=== PATIENT | male | born 1985 | race Caucasian/White ===

== ENCOUNTER 2018-07-21 02:38 | Inpatient (IN) | payer OTHER ==
[~2018-07-21] VITALS: Ht 153.7 cm; Wt 123.8 kg
[2018-07-21 04:00] VITALS: BP 138/90
--- NOTE | 2018-07-21 04:00 | NUR ---
RN ADMITTING NOTES PT CAME VIA GURNEY, AWAKE AND ALERT X4. PT IN ROOM AIR, NO SIGNS OF LABORED BREATHING. COMPLAINS OF PAIN IN THE RIGHT ABDOMEN GENERAL AREA 10/10. PT AMBULATED TO BED WITH STEADY GAIT. SKIN IS INTACT. IV ACCESS ON THE LEFT AC 20G PATENT AND INTACT. VITAL SIGNS BP: 138/90, 20 RESPIRATIONS, 115 HEART RATE, 02 STAT 97% ON ROOM AIR, TEMP OF 98 DEGREES. PT REPORTS NO NAUSEA OR VOMITING, "JUST IN PAIN." WILL CONTINUE TO MONITOR AND CONTACT DR. JACOB FOR ADMITTING ORDERS. SAFETY MEASURES IN PLACED, CALL LIGHT WITHIN REACH.
--- NOTE | 2018-07-21 04:21 | NUR ---
RN NOTES/ MD CALL CALLED DR. JACOB FOR ADMITTING ORDERS. SPOKE WITH HIM AND HE SAID "I WILL PUT IN THE ORDERS."
[2018-07-21] MEDS ORDERED: Z GUARD REMEDY 2 OZ OINT TP PRN (04:30)
[2018-07-21] MEDS ORDERED: ONDANSETRON HCL/PF 4 MG/2 ML VIAL IVP PRN (04:30)
[2018-07-21] MEDS ORDERED: Folic acid 1 MG in IV D5W 50 ML IV SCH (04:30)
[2018-07-21] MEDS ORDERED: Thiamine 100 MG in IV D5W 50 ML IV SCH (04:30)
[2018-07-21] MEDS ORDERED: ACETAMINOPHEN 325 MG TABLET PO PRN (04:30)
[2018-07-21] MEDS ORDERED: ZOLPIDEM TARTRATE 5 MG TABLET PO PRN (04:30)
--- NOTE | 2018-07-21 05:13 | NUR ---
RN NOTES/ MD CALL CALLED [facility] TO SPEAK WITH DR. JACOB TO ASK ABOUT THIAMINE AND PAIN MEDICATION ORDER. PT REPORTS 10/10 PAIN BUT NO OTHER PAIN MED BESIDES TYLENOL IS ORDERED. PT RECEIVED 1 BANANA BAG AT [place], WANT TO CONFIRM IF DR. JACOB STILL WANTS THIAMINE TO BE ADMINISTERED. [facility] TRIED PAGING DR. JACOB BUT "HE DID NOT DENTAL AIDE." WILL TRY TO CALL AGAIN.
[2018-07-21] MEDS: IV 1/2NS 1000 ML 1,000 ML IV PRN ×2 (05:28→23:28)
[2018-07-21] MEDS ORDERED: HYDROMORPHONE INJ 0.5 MG/0.5 ML SYRINGE IV PRN (06:00)
--- NOTE | 2018-07-21 06:00 | NUR ---
RN NOTES/ FOLIC AND THIAMINE CHARGE NURSE GREY CALLED NURSING CONTOUR BAND SAW OPERATOR VERTICAL ABOUT FOLIC ACID AND THIAMINE, NURSING CONTOUR BAND SAW OPERATOR VERTICAL SAID THAT IT WILL COME FROM THE PHARMACY. UNABLE TO ADMINISTER FOLIC ACID AND THIAMINE DUE TO UNAVAILABLE. WILL WAIT FOR PHARMACY AND WILL ENDORSE TO THE ONCOMING NURSE
--- NOTE | 2018-07-21 06:01 | NUR ---
RN NOTES/ DILAUDID ORDER SPOKE TO DR. JACOB ABOUT PAIN MEDICATION, HE ORDERED DILAUDID. PT REACTION TO MORPHINE IS HOT FLASH, SPOKE TO PHARMACIST JADE, SHE SAID THAT "HOT FLASHES IS NOT REALLY AN ALLERGIC REACTION. GIVE TRIAL OF DILAUDID ONCE TRIAL." WILL CONTINUE TO MONITOR CLOSELY FOR ANY REACTION. CHARGE NURSE AWARE
[2018-07-21 06:20] LABS: ALBUMIN 3.1 g/dL (3.4-5.0); BILIRUBIN,TOTAL 1.1 mg/dL (0.2-1.0); CALCIUM, SERUM 8.6 mg/dL (8.5-10.1); CREATININE 0.9 mg/dL (0.6-1.3); MAGNESIUM 1.5 mg/dL (1.8-2.4); PHOSPHORUS 3.6 mg/dL (2.5-4.9); POTASSIUM 3.4 mmol/L (3.5-5.1); TOTAL PROTEIN, SERUM 7.3 g/dL (6.4-8.2)
[2018-07-21 06:25] LABS: THYROID STIMULATING HORMONE 0.897 uIU/mL (0.358-3.74)
[2018-07-21 06:29] LABS: BASOPHILS % (AUTO) 0.2 % (0.0-2.0); HEMATOCRIT 44 % (39-51); HEMOGLOBIN 14.7 g/dL (13.5-17.5); LYMPHOCYTES # (AUTO) 1.4 /CMM (0.8-4.8); LYMPHOCYTES % (AUTO) 9.7 % (20.0-44.0); MEAN CORPUSCULAR HGB CONC 33 g/dl (31.0-36.0); MEAN CORPUSCULAR VOLUME 92 fL (80-96); MONOCYTES # (AUTO) 1.2 /CMM (0.1-1.30); MONOCYTES % (AUTO) 8.4 % (2.0-12.0); NEUTROPHILS # (AUTO) 11.5 /CMM (1.8-8.9); NEUTROPHILS % (AUTO) 80.7 % (43.0-81.0); PLATELET COUNT (AUTO) 216 /CMM (150-450); RDW COEFFICIENT OF VARIATION 15.8 (11.5-15.0); RED BLOOD CELL COUNT(AUTO) 4.82 MIL/uL (4.5-6.0); WHITE BLOOD COUNT (AUTO) 14.3 K/uL (4.3-11.0)
[2018-07-21] MEDS: HYDROMORPHONE 1 MG/1 ML DISP.SYRIN IV PRN ×4 (06:42→19:55)
--- NOTE | 2018-07-21 06:55 | NUR ---
RN NOTES/ DILAUDID ADMINISTERED ADMINISTERED DILAUDID TO PATIENT. PT DENIES ANY ALLERGIC REACTION AT THIS MOMENT, NO FEELING OF HOT FLASH, NO ITCHINESS, NO SHORTNESS OF BREATH. WILL CLOSELY MONITOR THE PATIENT.
--- NOTE | 2018-07-21 06:57 | NUR ---
RN CLOSING NOTES PT LAYING IN BED, AWAKE AND ALERT. PT IN ROOM AIR, TOLERATING WELL, NO LABORED BREATHING, NO SHORTNESS OF BREATH. IV ACCESS ON THE LEFT AC 20G PATENT AND INTACT. PT COMPLAINS OF PAIN LEVEL 10, GIVEN DILAUDID, NO SIGNS OF ALLERGIC REACTION. SKIN IS INTACT. SAFETY MEASURES IN PLACED, CALL LIGHT WITHIN REACH. WILL ENDORSE CONTINUITY OF CARE TO THE ONCOMING NURSE. WILL LET ONCOMING NURSE TO MONITOR CLOSELY FOR ANY ALLERGIC REACTION
--- NOTE | 2018-07-21 07:15 | NUR ---
MS RN OPENING NOTE RECEIVED PATIENT IN BED. ALERT ORIENTED X4, ON 2L O2 VIA NC, TOLERATING WELL. RESPIRATIONS EVEN AND UNLABORED, REPORTS DISCOMFORT AND PAIN 6/10 ON THE RIGHT UPPER ABDOMEN, PAIN MANAGEMENT IMPLEMENTED BY PM NURSE. DENIES N/V AT THIS TIME. PATIENT IS ABLE TO COMMUNICATE NEEDS. PATIENT WITH L AC 20G IVC, WITH FLUIDS RUNNING AT 150ML/HR. PATIENT KEPT CLEAN AND COMFORTABLE. ALL NEEDS ATTENDED. SAFETY MEASURES IN PLACE, BED IN LOW LOCKED POSITION, SIDE RAILS UP X2, CALL LIGHT WITHIN EASY REACH. WILL CONTINUE TO MONITOR.
[2018-07-21 08:00] VITALS: BP 116/60
[2018-07-21 08:16] VITALS: BP 116/60
[2018-07-21] MEDS: PANTOPRAZOLE 40 MG VIAL IV SCH (08:37)
[2018-07-21] MEDS: Thiamine 100 MG in IV D5W 50 ML IV SCH (08:37)
[2018-07-21] MEDS: Folic acid 1 MG in IV D5W 50 ML IV SCH (09:28)
[2018-07-21] MEDS: POTASSIUM CL. PREMIX PERIPHER. 50 ML IV SCH ×2 (10:52→12:15)
[2018-07-21] MEDS: Magnesium 1GM/D5W 100ML PREMIX 100 ML IV SCH ×2 (13:25→14:31)
[2018-07-21 16:19] VITALS: BP 114/70
--- NOTE | 2018-07-21 17:30 | NUR ---
PATIENT STATES HE WANTS TO GO AGAINST MEDICAL ADVICE AND HYDRATE AT HOME INSTEAD WITH ORAL FLUIDS. ALL RISKS AND BENEFITS AND POSSIBLE OUTCOMES DISCUSSED WITH THE PATIENT. PATIENT DECIDED TO STAY AND CONTINUE WITH CURRENT TREATMENT PLAN AT THIS TIME. WILL CONTINUE TO MONITOR.
[2018-07-21] MEDS: LORAZEPAM INJ 2 MG/ML VIAL IV PRN ×2 (17:51→21:51)
--- NOTE | 2018-07-21 17:55 | NUR ---
PATIENT IS FEELING ANXIOUS AND SHAKY POSSIBLY DUE TO ALCOHOL WITHDRAWAL. NO TREMORS OBSERVED. NO SEIZURE ACTIVITY NOTED. PATIENT IS ALERT ORIENTEDX4. PRN ATIVAN 2MG IV ADMINISTERED PER PHYSICIAN ORDER. PATIENT WAS PLACED ON [employer] INVENTORY CLERK PER ORDER OF OBI PRINCE NP. WILL CARRY OUT AND CONTINUE TO MONITOR AT THIS TIME.
--- NOTE | 2018-07-21 18:42 | NUR ---
SPECIMEN PREPARATION ASSISTANT CLOSING NOTE PATIENT IN BED. ALERT ORIENTED X4, ON ROOM AIR, TOLERATING WELL. RESPIRATIONS EVEN AND UNLABORED. IN NO APPARENT DISTRESS OR DISCOMFORT AT THIS TIME. DENIES PAIN AND N/V AT THIS TIME. PATIENT IS ABLE TO COMMUNICATE NEEDS. INSTRUCTED ON SIGNS AND SYMPTOMS OF ALCOHOL WITHDRAWAL. PATIENT WITH L AC 20G IVC, WITH FLUIDS RUNNING AT 150ML/HR. ON TELE MONITORING WITH SINUS RHYTHM AHD HR OF 91. ALL DUE MEDICATIONS ADMINISTERED. PRN ATIVAN WAS GIVEN FOR WITHDRAWAL SYMPTOMS. PAIN MANAGED WITH PRN DILAUDID. PATIENT KEPT NPO THROUGHOUT THE DAY. ALL NEEDS ATTENDED. PATIENT KEPT CLEAN AND COMFORTABLE. SAFETY MEASURES IN PLACE, SEIZURE PRECAUTIONS OBSERVED. BED IN LOW LOCKED POSITION, SIDE RAILS UP X2, CALL LIGHT WITHIN EASY REACH. WILL ENDORSE TO PM NURSE FOR GRABIEL.
--- NOTE | 2018-07-21 19:24 | NUR ---
RN OPENING NOTES PT ASLEEP IN BED, COMFORTABLY. PT IN ROOM AIR, NO SIGNS OF LABORED BREATHING, NO SIGNS OF DISTRESS. CARDIAC MONITORING IN PLACED, SHOWING SINUS RHYTHM 86BPM. SKIN IS INTACT. IV ACCESS ON THE LEFT AC 20G PATENT AND INTACT, 1/2 NS RUNNING AT 150 MLS/HR. NO SIGNS OF PAIN AT THIS MOMENT. SAFETY MEASURES IN PLACED, CALL LIGHT WITHIN REACH. WILL CONTINUE TO MONITOR AND ASSESS PATIENT
[2018-07-21 20:00] VITALS: BP 104/61
[2018-07-22 00:03] VITALS: BP 128/86
[2018-07-22] MEDS: HYDROMORPHONE 1 MG/1 ML DISP.SYRIN IV PRN ×2 (02:33→08:11)
[2018-07-22] MEDS: LORAZEPAM INJ 2 MG/ML VIAL IV PRN ×2 (03:20→09:37)
--- NOTE | 2018-07-22 03:20 | NUR ---
RN NOTES/ ATIVAN ATIVAN GIVEN BECAUSE PT WAS SLIGHTLY SHAKING, ANXIOUS, AND SWEATING. MADE THE ROOM COOLER TO HELP WITH SWEATING
[2018-07-22 04:00] VITALS: BP 119/82
--- NOTE | 2018-07-22 05:47 | NUR ---
RN NOTES PT VERBALIZES PLANNING ON LEAVING AMA IF NOT SEEN BY ANY DOCTOR TODAY AND HOW HE HAS BEEN NPO FOR 2 DAYS BUT NO PROCEDURE IS BEING DONE, EXCEPT FOR BLOOD DRAW. I TOLD HIM THAT THE ONCOLOGY DOCTOR IS LOOKING AT THE CALCIFICATION IN HIS AORTA SO THEY CAN TREAT IT IF POSSIBLE. I TOLD HIM THAT I WILL ENDORSE HIS CONCERN TO THE ONCOMING NURSE AND MD GROUP IF SEEN BEFORE END OF SHIFT, IF NOT THEN HE CAN SIGN AMA IF HE STILL WANTS TO.
--- NOTE | 2018-07-22 06:18 | NUR ---
RN NOTES SPOKE WITH DR. JACOB ON THE PHONE ABOUT PT'S CONCERN, HE SAID TO KEEP THE PT IN NPO BECAUSE OF HIS PANCREATITIS.
--- NOTE | 2018-07-22 06:55 | NUR ---
RN CLOSING NOTES PT ASLEEP IN BED, COMFORTABLY. PT IN ROOM AIR, NO SIGNS OF LABORED BREATHING, NO SIGNS OF DISTRESS, TOLERATING WELL. CARDIAC MONITORING IN PLACED, SHOWING SINUS RHYTHM 77BPM. SKIN IS INTACT. IV ACCESS ON THE LEFT AC 20G PATENT AND INTACT, 1/2NS AT 150MLS/HR RUNNING. CURRENTLY DOES NOT SHOW ANY SIGNS OF ALCOHOL WITHDRAWAL. SEIZURE PRECAUTION IN PLACED, SAFETY MEASURES IN PLACED, CALL LIGHT WITHIN REACH. WILL ENDORSE CONTINUITY OF CARE TO THE ONCOMING RN.
--- NOTE | 2018-07-22 07:44 | NUR ---
PIG CASTING MACHINE OPERATOR OPENING NOTE RECEIVED PATIENT IN BED. ALERT ORIENTED X4, ON ROOM AIR, TOLERATING WELL. RESPIRATIONS EVEN AND UNLABORED. IN NO APPARENT DISTRESS OR DISCOMFORT AT THIS TIME. DENIES PAIN AND N/V AT THIS TIME. PATIENT IS ABLE TO COMMUNICATE NEEDS. PATIENT WITH L AC 20G IVC, WITH FLUIDS RUNNING AT 150ML/HR. ON TELE MONITORING WITH SINUS RHYTHM. PATIENT KEPT NPO THROUGHOUT THE NIGHT. ALL NEEDS ATTENDED. PATIENT KEPT CLEAN AND COMFORTABLE. SAFETY MEASURES IN PLACE, SEIZURE PRECAUTIONS OBSERVED. BED IN LOW LOCKED POSITION, SIDE RAILS UP X2, CALL LIGHT WITHIN EASY REACH. WILL CONTINUE TO MONITOR.
[2018-07-22 08:00] VITALS: BP 109/78
[2018-07-22] MEDS: PANTOPRAZOLE 40 MG VIAL IV SCH (08:11)
[2018-07-22] MEDS ORDERED: NICOTINE PATCH (14MG) 14 MG PATCH.TD24 TD SCH (09:00)
[2018-07-22] MEDS: Thiamine 100 MG in IV D5W 50 ML IV SCH (09:37)
[2018-07-22] MEDS: Folic acid 1 MG in IV D5W 50 ML IV SCH ×2 (10:00→11:05)
--- NOTE | 2018-07-22 10:38 | NUR ---
Social service consult requested by KESHIA Watson for alcohol and drug use. Pt. is a 23 year old male who was admitted to [facility] for abdominal pain. SW attempted to assess pt. however pt. was fast asleep and snoring. SW and RN attempted to wake pt. up, however pt. did not wake up. SW to come back later to assess pt. when he is more awake.
--- NOTE | 2018-07-22 11:15 | NUR ---
MS RN NOTE PATIENT IS LEAVING THE HOSPITAL AGAINST THE ADVICE OF OBI PRINCE NP AND REPRESENTATIVES OF THE HOSPITAL ADMINISTRATION. PATIENT HAS BEEN TOLD BY THE DOCTOR ABOUT THE RISKS AND CONSEQUENCES INVOLVED IN LEAVING THE HOSPITAL AT THIS TIME, THE BENEFITS OF CONTINUED TREATMENT AND HOSPITALIZATION, AND THE ALTERNATIVES TO CONTINUED TREATMENT AND HOSPITALIZATION. PATIENT VERBALIZED UNDERSTANDING AND STATED HE STILL WANTS TO LEAVE THE HOSPITAL. PATIENT REFUSED ALL DISCHARGE INSTRUCTIONS. ONLY COPIES OF MEDICAL RECORDS HAVE BEEN PROVIDED TO THE PATIENT PER HIS REQUEST. BELONGINGS LIST CHECKED AND ACCOUNTED FOR. PATIENT PULLED HIS IV CANAL OUT HIMSELF. REFUSED THE LAST SCHEDULED FOLIC ACID IV INFUSION. REMOVED ID BAND UPON DEPARTURE. PATIENT AMBULATES INDEPENDENTLY. LEFT AMA ACCOMPANIED BY HIS MOM AT 1110.
--- NOTE | 2018-07-22 13:59 | NUR ---
SW contacted Med Surg 3 to inquire if pt. was awake. SW was informed that pt. left the hospital AMA.
== END 2018-07-22 11:15 | disposition left against medical advice (07) | DRG 282 ==
LOC: MED 03:53 → TELE 04:38 → MED 04:42 → TELE 17:28 → MED 07-22 10:22
PROVIDERS: ADMIT Internal Medicine; ATTEND Internal Medicine
DX: K85.20 Alcohol induced acute pancreatitis without necrosis or infection (principal); K76.0 Fatty (change of) liver, not elsewhere classified; E66.01 Morbid (severe) obesity due to excess calories; E83.42 Hypomagnesemia; E87.6 Hypokalemia; K86.0 Alcohol-induced chronic pancreatitis; Z68.43 Body mass index [BMI] 50.0-59.9, adult; E88.09 Other disorders of plasma-protein metabolism, not elsewhere classified; F15.90 Other stimulant use, unspecified, uncomplicated; F17.210 Nicotine dependence, cigarettes, uncomplicated; F20.9 Schizophrenia, unspecified; F31.9 Bipolar disorder, unspecified; G47.30 Sleep apnea, unspecified; I10 Essential (primary) hypertension; K21.9 Gastro-esophageal reflux disease without esophagitis; E80.6 Other disorders of bilirubin metabolism; R74.0 Nonspecific elevation of levels of transaminase and lactic acid dehydrogenase [LDH]
CPT/HCPCS: 36415; 80053-TC; 83690-TC; 83735-TC; 84100-TC; 84443-TC; 85025-TC; 87081-TC; C9113; J1170; J2060; J3411; J3475; J3480; J3490; J7060

== ENCOUNTER 2018-07-25 00:44 | Emergency (ER) | payer OTHER ==
[~2018-07-25] VITALS: Ht 180.3 cm; Wt 127.0 kg
--- NOTE | 2018-07-25 01:00 | NUR ---
TO ER BED 10 COMPLAINING OF ABDOMINAL PAIN, N/V SINCE SUNDAY. PT AA/OX4. NO S/S SOB. SKIN PALE, WARM, MOIST. MOVES ALL EXTREMITIES WELL. AMBULATED TO HOSPITAL BED WITH STABLE GAIT. PEDAL PULSES PRESENT. ACTIVE BOWELS SOUNDS NOTED. ABDOMINAL DISTENTION NOTED. DIFFUSE ABDOMINAL PAIN, SHARP, 5/10 PAIN, NON RADIATING. NAD. VSS. STABLE CONDITION. WILL CONTINUE TO MONITOR.
[2018-07-25 01:56] LABS: BASOPHILS # (AUTO) 0.1 /CMM (0.0-0.2); BASOPHILS % (AUTO) 0.6 % (0.0-2.0); EOSINOPHILS % (AUTO) 2.7 % (0.0-6.0); HEMATOCRIT 45 % (39-51); HEMOGLOBIN 14.6 g/dL (13.5-17.5); LYMPHOCYTES # (AUTO) 1.1 /CMM (0.8-4.8); LYMPHOCYTES % (AUTO) 13.9 % (20.0-44.0); MEAN CORPUSCULAR HGB CONC 33 g/dl (31.0-36.0); MEAN CORPUSCULAR VOLUME 92 fL (80-96); MONOCYTES % (AUTO) 11.6 % (2.0-12.0); NEUTROPHILS # (AUTO) 5.9 /CMM (1.8-8.9); NEUTROPHILS % (AUTO) 71.2 % (43.0-81.0); PLATELET COUNT (AUTO) 300 /CMM (150-450); RDW COEFFICIENT OF VARIATION 16.2 (11.5-15.0); RED BLOOD CELL COUNT(AUTO) 4.85 MIL/uL (4.5-6.0); WHITE BLOOD COUNT (AUTO) 8.3 K/uL (4.3-11.0)
[2018-07-25] MEDS ORDERED: KETOROLAC TROMETHAMINE INJ 30 MG/ML VIAL ONE (02:00)
[2018-07-25] MEDS ORDERED: ONDANSETRON HCL/PF 4 MG/2 ML VIAL ONE (02:00)
[2018-07-25] MEDS: IV NS 0.9% 1,000 ML BAG IV ONE (02:00)
[2018-07-25] MEDS: ONDANSETRON HCL/PF 4 MG/2 ML VIAL IVP ONE (02:00)
[2018-07-25 02:08] LABS: CALCIUM, SERUM 8.7 mg/dL (8.5-10.1); CREATININE 1.1 mg/dL (0.6-1.3); POTASSIUM 3.6 mmol/L (3.5-5.1)
[2018-07-25 02:11] LABS: INR 1.13 (0.87-1.13)
[2018-07-25 02:16] LABS: ALBUMIN 3.4 g/dL (3.4-5.0); BILIRUBIN,DIRECT 0.1 mg/dL (0.0-0.2); BILIRUBIN,TOTAL 0.3 mg/dL (0.2-1.0)
[2018-07-25 03:26] LABS: APPEARANCE,URINE CLEAR (CLEAR); BILIRUBIN,URINE NEGATIVE (NEGATIVE); BLOOD, URINE TRACE Ery/uL (NEGATIVE); COLOR,URINE YELLOW (YELLOW); KETONES,URINE NEGATIVE (NEGATIVE); LEUKOCYTE ESTERASE ,URINE NEGATIVE (NEGATIVE); NITRITE, URINE NEGATIVE (NEGATIVE); PROTEIN,URINE 1+ mg/dl (NEGATIVE); UGLUCOSE NEGATIVE (NEGATIVE); UROBILINOGEN,URINE 0.2 EU/dL (0.2)
--- NOTE | 2018-07-25 03:26 | NUR ---
RESTING COMFORTABLY IN BED. EASILY AROUSED. NAD. VSS. WILL CONTINUE TO MONITOR.
[2018-07-25] MEDS: KETOROLAC TROMETHAMINE INJ 30 MG/ML VIAL IV ONE (03:30)
--- NOTE | 2018-07-25 03:30 | NUR ---
US AT BEDSIDE
[2018-07-25 03:38] LABS: BACTERIA,URINE None seen /HPF (None Seen); RBC,URINE 0-2 /HPF (0-2); SQUAMOUS EPITHELIAL CELL,UR Few /HPF (None Seen); WBC,URINE 0-2 /HPF (0-3)
--- NOTE | 2018-07-25 04:39 | NUR ---
Patient discharged to home in stable condition. Written and verbal after care instructions given. Patient verbalizes understanding of instruction. IV removed. Catheter intact and site benign. Pressure and 4x4 applied to site. No bleeding noted. AMBULATED WITH STEADY GAIT. INSTRUCTED NOT TO DRIVE OR OPERATE HEAVY MACHINERY.
[2018-07-25 04:41] VITALS: BP 117/70
== END 2018-07-25 04:42 | disposition home or self-care (01) ==
LOC: ER 00:47
DX: F19.10 Other psychoactive substance abuse, uncomplicated (principal); R10.11 Right upper quadrant pain; R74.0 Nonspecific elevation of levels of transaminase and lactic acid dehydrogenase [LDH]; R94.31 Abnormal electrocardiogram [ECG] [EKG]; E86.0 Dehydration; I10 Essential (primary) hypertension; K21.9 Gastro-esophageal reflux disease without esophagitis; F32.9 Major depressive disorder, single episode, unspecified; F20.9 Schizophrenia, unspecified; Z90.89 Acquired absence of other organs; Z98.890 Other specified postprocedural states; Z88.6 Allergy status to analgesic agent; Z87.19 Personal history of other diseases of the digestive system
CPT/HCPCS: 36415; 76705; 80048; 80076; 80305; 81001; 83690; 85025; 85730; 93005; 96361; 96374; 96375; 99285; A4606; G0480; J1885; J2405; J7030; Z7610; 81000-TC